=== PATIENT | female | born 1995 | race Caucasian/White ===

== ENCOUNTER 2016-10-15 13:00 | Emergency (ER) | payer OTHER ==
[~2016-10-15] VITALS: Ht 154.9 cm; Wt 56.7 kg
--- NOTE | 2016-10-15 13:49 | EKG ---
[facility] [address] [place] [address] Test Date: 2016-10-15 Test Time: 13:16:17 Pat Name: ANTHONY DAUGHERTY Department: Room: Gender: F Internet Sales Director: : 1995 Requested By: ANN STEVENS Order Number: [id number] Reading MD: Bran Blount Measurements Intervals [place] Rate: 78 P: 26 WA: 162 QRS: 71 QRSD: 78 T: 28 QT: 342 QTc: 393 Interpretive Statements SINUS RHYTHM Electronically Signed On 10-17-2016 10:35:01 [employer] by Bran Blount
[2016-10-15 13:55] LABS: BASO % 1 % (0-3); EOS % 1 % (0-3); HEMATOCRIT 33.6 % (36.0-47.0); HEMOGLOBIN 10.4 g/dL (12.0-15.5); LYMPH # 1.5 x10^3/uL (1.0-4.8); LYMPH % 26 % (24-48); MEAN CORPUSCULAR HEMOGLOBIN 23 pg (25-35); MEAN CORPUSCULAR HGB CONC 31 g/dL (31-37); MEAN CORPUSCULAR VOLUME 73 fL (79-100); MONO % 6 % (0-9); NEUT % 67 % (31-73); PLATELET COUNT 154 x10^3/uL (140-400); RED BLOOD COUNT 4.61 x10^6/uL (3.50-5.40); RED CELL DISTRIBUTION WIDTH 18.2 % (11.5-14.5); WHITE BLOOD COUNT 5.5 x10^3/uL (4.0-11.0)
--- NOTE | 2016-10-15 14:11 | PHYS DOC ---
Past Medical History Past Medical History: Arrhythmia, Seizure Past Surgical History: Alcohol Use: None Drug Use: None Adult General Chief Complaint Chief Complaint: SEIZURE HPI HPI Patient is a 20 year old female who presents with complaint of seizure episode that took place prior to arrival. The patient was brought to the emergency department from [facility]. The patient reportedly had a total of 5 seizure episodes earlier this morning. During one of the episodes patient reportedly struck the front of her face on a ladder in the cell. The patient states that she does not remember the episodes but states that she feels like she does when she has a seizure. The patient has been on carbamazepine therapy and is currently transitioning to phenobarbital therapy for her seizures. The patient states that she has had a currently. Patient denies any neck pain, nausea, vomiting, chest pain, or abdominal pain. Patient denies any focal weakness, vision loss, or difficulty with speech or swallowing. Patient rates her pain as 8 out of 10. Review of Systems Review of Systems Constitutional: Denies fever or chills [] Eyes: Denies change in visual acuity, redness, or eye pain [] HENT: Denies nasal congestion or sore throat [] Respiratory: Denies cough or shortness of breath [] Cardiovascular: No additional information not addressed in HPI [] GI: Denies abdominal pain, nausea, vomiting, bloody stools or diarrhea [] : Denies dysuria or hematuria [] Musculoskeletal: Denies back pain or joint pain [] Integument: Denies rash or skin lesions [] Neurologic: Headache, denies focal weakness or sensory changes [] Endocrine: Denies polyuria or polydipsia [] Current Medications Current Medications Current Medications Medications (Trade) Dose Ordered Sig/[facility] Start Time Stop Time Status Last Admin Dose Admin Acetaminophen (Tylenol) 650 mg 1X ONCE 10/15/16 14:30 10/15/16 14:31 DC 10/15/16 14:42 650 MG Allergies Allergies Allergies Coded Allergies Type Severity Reaction Last Updated Verified Penicillins Allergy Intermediate 10/15/16 Yes Physical Exam Physical Exam Constitutional: Alert, afebrile, no acute distress.. [] HENT: Normocephalic, ecchymosis to forehead and bilateral periorbital distribution, ecchymosis to right upper lip, bilateral external ears normal, oropharynx moist, no oral exudates, nose normal. [] Eyes: PERRLA, EOMI, conjunctiva normal, no discharge. [] Neck: Normal range of motion, no tenderness, supple, no stridor. [] Cardiovascular:Heart rate regular rhythm, no murmur [] Lungs & Thorax: Bilateral breath sounds clear to auscultation [] Abdomen: Bowel sounds normal, soft, no tenderness, no masses, no pulsatile masses. [] Skin: Warm, dry, no erythema, no rash. [] Back: No tenderness, no CVA tenderness. [] Extremities: No tenderness, no cyanosis, no clubbing, ROM intact, no edema. [] Neurologic: Alert and oriented X 3, normal motor function, normal sensory function, no focal deficits noted. [] Current Patient Data Vital Signs Vital Signs Date Time Temp Pulse Resp B/P Pulse Ox O2 Delivery O2 Flow Rate FiO2 10/15/16 13:10 98.1 88 10 113/71 94 Room Air 98.1 Lab Values Laboratory Tests Test 10/15/16 13:46 10/15/16 14:51 White Blood Count 5.5x10^3/uL (4.0-11.0) Red Blood Count 4.61x10^6/uL (3.50-5.40) Hemoglobin 10.4g/dL (12.0-15.5) L Hematocrit 33.6% (36.0-47.0) L Mean Corpuscular Volume 73fL (79-100) L Mean Corpuscular Hemoglobin 23pg (25-35) L Mean Corpuscular Hemoglobin Concent 31g/dL (31-37) Red Cell Distribution Width 18.2% (11.5-14.5) H Platelet Count 154x10^3/uL (140-400) Neutrophils (%) (Auto) 67% (31-73) Lymphocytes (%) (Auto) 26% (24-48) Monocytes (%) (Auto) 6% (0-9) Eosinophils (%) (Auto) 1% (0-3) Basophils (%) (Auto) 1% (0-3) Neutrophils # (Auto) 3.7x10^3uL (1.8-7.7) Lymphocytes # (Auto) 1.5x10^3/uL (1.0-4.8) Monocytes # (Auto) 0.3x10^3/uL (0.0-1.1) Eosinophils # (Auto) 0.1x10^3/uL (0.0-0.7) Basophils # (Auto) 0.0x10^3/uL (0.0-0.2) Platelet Estimate Pending Sodium Level 143mmol/L (136-145) Potassium Level 4.0mmol/L (3.5-5.1) Chloride Level 107mmol/L (98-107) Carbon Dioxide Level 29mmol/L (21-32) Anion Gap 7 (6-14) Blood Urea Nitrogen 9mg/dL (7-20) Creatinine 0.6mg/dL (0.6-1.0) Estimated GFR (Cockcroft-Gault) 125.0 BUN/Creatinine Ratio 15 (6-20) Glucose Level 83mg/dL (70-99) Lactic Acid Level 0.9mmol/L (0.4-2.0) Calcium Level 8.5mg/dL (8.5-10.1) Total Bilirubin 0.2mg/dL (0.2-1.0) Aspartate Amino Transferase (AST) 12U/L (15-37) L Alanine Aminotransferase (ALT) 12U/L (14-59) L Alkaline Phosphatase 93U/L (46-116) Total Protein 6.6g/dL (6.4-8.2) Albumin 3.7g/dL (3.4-5.0) Albumin/Globulin Ratio 1.3 (1.0-1.7) Urine Collection Type U cath Urine Color Yellow Urine Clarity Clear Urine pH 7.0 Urine Specific [place] 1.015 Urine Protein Negativemg/dL (NEG-TRACE) Urine Glucose (UA) Negativemg/dL (NEG) Urine Ketones (Stick) Negativemg/dL (NEG) Urine Blood Negative (NEG) Urine Nitrite Negative (NEG) Urine Bilirubin Negative (NEG) Urine Urobilinogen Dipstick 0.2mg/dL (0.2 mg/dL) Urine Leukocyte Esterase Small (NEG) Urine RBC 0/HPF (0-2) Urine WBC 1-4/HPF (0-4) Urine Squamous Epithelial Cells Mod/LPF Urine Bacteria Few/HPF (0-FEW) Urine Mucus Marked/LPF Urine Test Negative (NEG) Laboratory Tests 10/15/16 13:46 Laboratory Tests 10/15/16 13:46 EKG EKG Interpreted by me: Heart rate 78, sinus rhythm, normal intervals, normal axis, no acute ST/T-wave abnormalities present [] Radiology/Procedures Radiology/Procedures CT of the head and face pending at time of sign out. [] Course & Med Decision Making Course & Med Decision Making Pertinent Labs and Imaging studies reviewed. (See chart for details) Patient was given Tylenol for headache. I consult to Dr. Calhoun of neurology. He recommended that the patient be started on Keppra therapy and that she have a brain MRI done in the next 2 days. He stated that if the patient's head CT and facial CT were negative for acute injury the patient could be discharged back to [facility]. Results of CT pending at time of sign out. Dr. Gilmore took over care of patient at 1530. Dragon Disclaimer Dragon Disclaimer This electronic medical record was generated, in whole or in part, using a voice recognition dictation system. Departure Departure Impression: Primary Impression: Seizure disorder Additional Impression: Facial injury Disposition: 01 HOME, SELF-CARE Condition: STABLE Referrals: NO PCP (PCP) Patient Instructions: Seizure, Adult Additional Instructions: You were started on Keppra as was recommended by our on-call neurologist, Dr. Calhoun. It is recommended that she follow-up with your neurologist within the next 5 days. It is also recommended that you have a brain MRI done in the next 2 days as recommended by neurology. Return to the emergency department for any worsening symptoms or further seizure activity. Scripts Levetiracetam (Keppra)500 Mg Tablet1 Tab PO BID #60 TAB Ref 0 Prov:ANN STEVENS MD 10/15/16 Problem Qualifiers Additional Impression: Facial injury Encounter type: initial encounter Qualified Code: S09.93XA - Unspecified injury of face, initial encounter ANN STEVENS MD Oct 15, 2016 14:11
[2016-10-15] MEDS ORDERED: ACETAMINOPHEN 325 MG TABLET. PO ONE (14:30)
[2016-10-15 14:37] LABS: CALCIUM 8.5 mg/dL (8.5-10.1); CREATININE 0.6 mg/dL (0.6-1.0)
[2016-10-15 14:43] LABS: ALBUMIN 3.7 g/dL (3.4-5.0); ALBUMIN/GLOBULIN RATIO 1.3 (1.0-1.7); TOTAL BILIRUBIN 0.2 mg/dL (0.2-1.0); TOTAL PROTEIN 6.6 g/dL (6.4-8.2)
[2016-10-15 15:01] LABS: NEG OBC UR NEG; POS OBC UR POS
[2016-10-15 15:09] LABS: BILIRUBIN,URINE NEGATIVE (NEG); GLUCOSE,URINE NEGATIVE (NEG); NITRITE,URINE NEGATIVE (NEG); PROTEIN,URINE NEGATIVE (NEG-TRACE); UROBILINOGEN,URINE 0.2 mg/dL (0.2 mg/dL)
[2016-10-15 15:10] LABS: BACTERIA,URINE FEW /HPF (0-FEW); RBC,URINE 0 /HPF (0-2); SQUAMOUS EPITHELIAL CELL,UR MOD /LPF
[2016-10-15 15:12] LABS: BARBITURATES POS (NEG); BENZODIAZEPINES NEG (NEG); CANNABINOIDS NEG (NEG); COCAINE NEG (NEG); METHADONE NEG (NEG); OPIATES NEG (NEG); PHENCYCLIDINE NEG (NEG)
[2016-10-15 15:18] LABS: ETHANOL, URINE NEG (NEG)
[2016-10-15 15:23] LABS: ANISOCYTOSIS SLIGHT; HYPOCHROMIA MOD; MICROCYTOSIS SLIGHT; OVALOCYTES FEW; PLT ESTIMATE ADEQUATE (ADEQUATE); POIKILOCYTOSIS SLIGHT
[2016-10-15] MEDS ORDERED: LEVE500T56 PO (15:29)
[2016-10-15 15:30] VITALS: BP 100/64
[2016-10-15] MEDS ORDERED: LEVETIRACETAM 500 MG TABLET PO STA (15:31)
--- NOTE | 2016-10-15 15:38 | RAD ---
Head and maxillofacial CT without contrast Indication: Seizure and fall. Axial imaging through the brain and facial bones was performed without contrast. Sagittal and coronal reformations of the facial bones were also performed. CT brain: The ventricles and sulci are within normal limits. No sulcal effacement, midline shift or hemorrhage is detected. The cisterns are patent. Impression: No acute intracranial process is detected. CT maxillofacial: The mandible is intact. The zygomatic arches are intact. The maxillary sinus carmona and orbital carmona are intact. No nasal bone fracture is seen. Impression: No acute abnormalities detected. Electronically signed by: Jamir Umana MD (Oct 15, 2016 15:36:28)
== END 2016-10-15 15:53 | disposition home or self-care (01) ==
LOC: ER 13:00 → EEVIPCON 13:00 → ER 15:53
DX: S00.83XA Contusion of other part of head, initial encounter (principal); S00.531A Contusion of lip, initial encounter; G40.909 Epilepsy, unspecified, not intractable, without status epilepticus; Z88.0 Allergy status to penicillin; Z79.899 Other long term (current) drug therapy; W22.8XXA Striking against or struck by other objects, initial encounter; Y93.89 Activity, other specified; Y92.143 Cell of prison as the place of occurrence of the external cause; Y99.8 Other external cause status
CPT/HCPCS: 36415; 70450; 70486; 80053; 81001; 81025; 83605; 85007; 85027; 87086; 93005; 99285; G0481

== ENCOUNTER 2016-12-07 01:15 | Emergency (ER) | payer OTHER ==
[~2016-12-07] VITALS: Ht 167.6 cm; Wt 56.7 kg
[~2016-12-07 01:15] MED LIST: LEVE500T56 PO
[2016-12-07] MEDS ORDERED: IV NORMAL SALINE 1000ML BAG 1,000 ML IV ONE (02:00)
--- NOTE | 2016-12-07 02:11 | PHYS DOC ---
Past Medical History Past Medical History: Arrhythmia, Seizure Past Surgical History: Alcohol Use: None Drug Use: None Adult General Chief Complaint Chief Complaint: SEIZURE HPI HPI Patient is a 20 year old female who presents by EMS from [facility] for multiple seizures this evening. She is taking carbamazepine and phenobarbital with reported no missed doses. She was given her doses this evening around 2200 on 12/06/16. She had a witnessed tonic clonic seizure by EMS and was given Versed 10mg IN. She does not give history at this time, but there is no other recent illness or pertinent history provided by nursing report over phone. From [facility] ED visit 10/15/16, she was being titrated down on carbamazepine and up on phenobarbital. Neurology was consulted by phone and recommended she be started on Keppra. Keppra is not on her current medication list sent from nursing home today. Review of Systems Review of Systems Unable to obtain secondary to mental status Current Medications Current Medications Current Medications Medications (Trade) Dose Ordered Sig/Karrie Start Time Stop Time Status Last Admin Dose Admin Acetaminophen (Tylenol) 500 mg 1X ONCE 12/07/16 03:00 12/07/16 03:01 DC 12/07/16 02:36 500 MG Sodium Chloride (Iv Sodium Chloride 0.9% 1000ml Bag) 1,000 ml @ 1,000 mls/hr 1X ONCE 12/07/16 02:00 12/07/16 02:59 DC 12/07/16 01:52 1,000 MLS/HR Allergies Allergies Allergies Coded Allergies Type Severity Reaction Last Updated Verified Penicillins Allergy Intermediate 10/15/16 Yes Physical Exam Physical Exam Constitutional: Well developed, well nourished, no acute distress, non-toxic appearance. [] HENT: Normocephalic, atraumatic, bilateral external ears normal, oropharynx moist, no oral exudates, nose normal. [] Eyes: PERRLA, EOMI, conjunctiva normal, no discharge. [] Neck: Normal range of motion, no tenderness, supple, no stridor. [] Cardiovascular:Heart rate regular rhythm [] Lungs & Thorax: Bilateral breath sounds clear to auscultation [] Abdomen: Bowel sounds normal, soft, no tenderness. [] Skin: Warm, dry, no erythema, no rash. [] Back: No tenderness, no CVA tenderness. [] Extremities: No tenderness, ROM intact, no edema. [] Neurologic: Sleepy and mumbles, moves extremities to pain, appears post-ictal. [ ] Psychologic: Unable to assess secondary to altered mental status. [] Current Patient Data Vital Signs Vital Signs Date Time Temp Pulse Resp B/P Pulse Ox O2 Delivery O2 Flow Rate FiO2 12/07/16 01:20 98.7 70 16 112/74 100 Room Air 98.7 Lab Values Laboratory Tests Test 12/07/16 01:05 12/07/16 01:55 12/07/16 02:00 POC Urine HCG, Qualitative Hcg negative (Negative) Sodium Level 142mmol/L (136-145) Potassium Level 4.5mmol/L (3.5-5.1) Chloride Level 105mmol/L (98-107) Carbon Dioxide Level 28mmol/L (21-32) Anion Gap 9 (6-14) Blood Urea Nitrogen 15mg/dL (7-20) Creatinine 0.6mg/dL (0.6-1.0) Estimated GFR (Cockcroft-Gault) 125.0 Glucose Level 83mg/dL (70-99) Calcium Level 8.7mg/dL (8.5-10.1) Carbamazepine (Tegretol) Level 7.9mcg/mL (4.0-12.0) Carbamazepine Last Dose Date Unknown Carbamazepine Last Dose Time Unknown Phenobarbital Level 29.2mcg/mL (15.0-40.0) Phenobarbital Last Dose Date Unknown Phenobarbital Last Dose Time Unknown Urine Opiates Screen Neg (NEG) Urine Methadone Screen Neg (NEG) Urine Barbiturates Pos (NEG) Urine Phencyclidine Screen Neg (NEG) Urine Amphetamine/Methamphetamine Neg (NEG) Urine Benzodiazepines Screen Pos (NEG) Urine Cocaine Screen Neg (NEG) Urine Cannabinoids Screen Neg (NEG) Urine Ethyl Alcohol Neg (NEG) Laboratory Tests 12/07/16 01:55 EKG EKG EKG as interpreted by me as normal sinus rhythm, rate 64, no ST-T changes, normal intervals, no ectopy Course & Med Decision Making Course & Med Decision Making Pertinent Labs and Imaging studies reviewed. (See chart for details) 0220: She is AOx3 and has complaint of general headache that she usually gets after seizure. She states she has almost daily seizures and she has not discussed a further plan for medication alteration with a neurologist as she does not like her current neurologist. She is not taking keppra because she has failed that medication in the past. She feels she is back to her baseline. She denies recent f/c, n/v, diarrhea, dysuria, cough, dyspnea, numbness, tingling, weakness, trauma. She notes compliance with current medication regimen. She denies drug intake. 0300: She remains at mental baseline with no further seizure activity. Will discharge back to nursing home custody to continue outpatient follow up. Encouraged her to see a neurologist for further management. Return precautions given. She understands and agrees with plan. Dragon Disclaimer Dragon Disclaimer This electronic medical record was generated, in whole or in part, using a voice recognition dictation system. Departure Departure Impression: Primary Impression: Seizure disorder Additional Impression: Headache Disposition: 01 HOME, SELF-CARE (nursing home) Condition: STABLE Referrals: PAPO GOODWIN MD Patient Instructions: Seizure, Adult, [id number] Additional Instructions: Continue your current medications. Follow-up with neurology clinic. Please call for appointment. Return for any concerns. Problem Qualifiers Additional Impression: Headache Headache type: unspecified Headache chronicity pattern: episodic headache Intractability: not intractable Qualified Code: R51 - Headache Abisai KRISHNAN MD Dec 07, 2016 02:11
[2016-12-07 02:18] LABS: ANION GAP 9 (6-14); BLOOD UREA NITROGEN 15 mg/dL (7-20); CALCIUM 8.7 mg/dL (8.5-10.1); CARBON DIOXIDE 28 mmol/L (21-32); CHLORIDE 105 mmol/L (98-107); CREATININE 0.6 mg/dL (0.6-1.0); GLUCOSE 83 mg/dL (70-99); POTASSIUM 4.5 mmol/L (3.5-5.1); SODIUM 142 mmol/L (136-145)
[2016-12-07 02:18] LABS: BARBITURATES POS (NEG); BENZODIAZEPINES POS (NEG); CANNABINOIDS NEG (NEG); COCAINE NEG (NEG); METHADONE NEG (NEG); OPIATES NEG (NEG); PHENCYCLIDINE NEG (NEG)
[2016-12-07 02:19] LABS: ETHANOL, URINE NEG (NEG)
[2016-12-07 02:22] LABS: PHENOBARB 29.2 mcg/mL (15.0-40.0)
[2016-12-07 03:00] VITALS: BP 104/74
[2016-12-07] MEDS ORDERED: ACETAMINOPHEN 500 MG TABLET PO ONE (03:00)
--- NOTE | 2016-12-07 06:13 | EKG ---
[facility] [address] [place] [address] Test Date: 2016-12-04 Test Time: 00:46:06 Pat Name: ANTHONY SCHWARTZFIELD Department: Room: Gender: F Training And Development Coordinator: : 1995 Requested By: Abisai KRISHNAN Order Number: [id number] Reading MD: Measurements Intervals [place] Rate: 64 P: 28 DC: 174 QRS: 71 QRSD: 74 T: 34 QT: 368 QTc: 383 Interpretive Statements SINUS RHYTHM QRS(T) CONTOUR ABNORMALITY CONSISTENT WITH ANTEROSEPTAL MYOCARDIAL DAMAGE ABNORMAL ECG RI6.01 No previous ECG available for comparison
== END 2016-12-07 03:15 | disposition home or self-care (01) ==
LOC: ER 01:15 → EEVIPCON 01:15 → ER 03:15
DX: G40.909 Epilepsy, unspecified, not intractable, without status epilepticus (principal); R51 Headache; Z88.0 Allergy status to penicillin
CPT/HCPCS: 36415; 51701; 80048; 80156; 80184; 81025; 93005; 96360; 99285; G0481; J7030

== ENCOUNTER 2016-12-11 00:25 | Emergency (ER) | payer OTHER ==
[~2016-12-11] VITALS: Ht 160 cm; Wt 56.7 kg
--- NOTE | 2016-12-11 00:52 | PHYS DOC ---
Past Medical History Past Medical History: Arrhythmia, Seizure Past Surgical History: Alcohol Use: None Drug Use: None Adult General Chief Complaint Chief Complaint: SEIZURE HPI HPI Patient is a 20 year old female who presents with altered mental status. The patient was brought to the emergency department from [facility] after reportedly having 12 seizures in a 45 minute time period. The patient has history of seizure disorder and was recently seen in the emergency department on December 07, 2016. Before that she had been admitted to [facility]. The patient has had trouble with compliance to the medical regimen. Recommendations have been made for patient to start on Keppra, however reports are that the patient has refused to take Keppra due to not liking the way that it makes her feel. Patient is currently taking carbamazepine and phenobarbital. The patient currently is unable to provide any history as she is altered in his currently not speaking or answering questions. Patient was given Versed prior to arrival which helped stop the patient's seizures. Review of Systems Review of Systems Unable to obtain from patient due to altered mental status Current Medications Current Medications Current Medications Medications (Trade) Dose Ordered Sig/Karrie Start Time Stop Time Status Last Admin Dose Admin Ketorolac Tromethamine (Toradol) 30 mg 1X ONCE 12/11/16 02:30 12/11/16 02:31 DC 12/11/16 02:27 30 MG Sodium Chloride (Iv Sodium Chloride 0.9% 1000ml Bag) 1,000 ml @ 1,000 mls/hr 1X ONCE 12/11/16 01:00 12/11/16 01:59 DC 12/11/16 02:14 1,000 MLS/HR Allergies Allergies Allergies Coded Allergies Type Severity Reaction Last Updated Verified Penicillins Allergy Intermediate 10/15/16 Yes diazepam Allergy Unknown 12/11/16 Yes Physical Exam Physical Exam Constitutional: Lethargic, tracks to voice, aphasic. [] HENT: Normocephalic, atraumatic, bilateral external ears normal, oropharynx moist, no oral exudates, nose normal. [] Eyes: PERRLA, EOMI, horizontal nystagmus present, conjunctiva normal, no discharge. [] Neck: Normal range of motion, no tenderness, supple, no stridor. [] Cardiovascular:Heart rate regular rhythm, no murmur [] Lungs & Thorax: Bilateral breath sounds clear to auscultation [] Abdomen: Bowel sounds normal, soft, no tenderness, no masses, no pulsatile masses. [] Skin: Warm, dry, no erythema, no rash. [] Back: No tenderness, no CVA tenderness. [] Extremities: No tenderness, no cyanosis, no clubbing, ROM intact, no edema. [] Neurologic: Lethargic, tracks to voice, moves extremities purposefully but does not follow commands. [] Current Patient Data Vital Signs Vital Signs Date Time Temp Pulse Resp B/P Pulse Ox O2 Delivery O2 Flow Rate FiO2 12/11/16 00:25 97.4 71 15 113/79 99 Room Air 97.4 Lab Values Laboratory Tests Test 12/11/16 00:34 12/11/16 01:12 12/11/16 01:24 POC Urine HCG, Qualitative Hcg negative (Negative) White Blood Count 5.7x10^3/uL (4.0-11.0) Red Blood Count 4.72x10^6/uL (3.50-5.40) Hemoglobin 11.5g/dL (12.0-15.5) L Hematocrit 36.9% (36.0-47.0) Mean Corpuscular Volume 78fL (79-100) L Mean Corpuscular Hemoglobin 24pg (25-35) L Mean Corpuscular Hemoglobin Concent 31g/dL (31-37) Red Cell Distribution Width 20.4% (11.5-14.5) H Platelet Count 204x10^3/uL (140-400) Neutrophils (%) (Auto) 50% (31-73) Lymphocytes (%) (Auto) 42% (24-48) Monocytes (%) (Auto) 7% (0-9) Eosinophils (%) (Auto) 1% (0-3) Basophils (%) (Auto) 1% (0-3) Neutrophils # (Auto) 2.8x10^3uL (1.8-7.7) Lymphocytes # (Auto) 2.4x10^3/uL (1.0-4.8) Monocytes # (Auto) 0.4x10^3/uL (0.0-1.1) Eosinophils # (Auto) 0.1x10^3/uL (0.0-0.7) Basophils # (Auto) 0.1x10^3/uL (0.0-0.2) Sodium Level 142mmol/L (136-145) Potassium Level 4.0mmol/L (3.5-5.1) Chloride Level 104mmol/L (98-107) Carbon Dioxide Level 29mmol/L (21-32) Anion Gap 9 (6-14) Blood Urea Nitrogen 10mg/dL (7-20) Creatinine 0.6mg/dL (0.6-1.0) Estimated GFR (Cockcroft-Gault) 125.0 BUN/Creatinine Ratio 17 (6-20) Glucose Level 80mg/dL (70-99) Calcium Level 9.1mg/dL (8.5-10.1) Total Bilirubin 0.3mg/dL (0.2-1.0) Aspartate Amino Transferase (AST) 22U/L (15-37) Alanine Aminotransferase (ALT) 17U/L (14-59) Alkaline Phosphatase 114U/L (46-116) Total Protein 7.3g/dL (6.4-8.2) Albumin 4.1g/dL (3.4-5.0) Albumin/Globulin Ratio 1.3 (1.0-1.7) Carbamazepine (Tegretol) Level 7.7mcg/mL (4.0-12.0) Carbamazepine Last Dose Date Carbamazepine Last Dose Time Phenobarbital Level 34.2mcg/mL (15.0-40.0) Phenobarbital Last Dose Date Phenobarbital Last Dose Time Urine Collection Type U cath Urine Color Yellow Urine Clarity Cloudy Urine pH 7.0 Urine Specific [place] 1.025 Urine Protein Negativemg/dL (NEG-TRACE) Urine Glucose (UA) Negativemg/dL (NEG) Urine Ketones (Stick) Tracemg/dL (NEG) Urine Blood Negative (NEG) Urine Nitrite Negative (NEG) Urine Bilirubin Small (NEG) Urine Urobilinogen Dipstick 1.0mg/dL (0.2 mg/dL) Urine Leukocyte Esterase Negative (NEG) Urine RBC 0/HPF (0-2) Urine WBC 0/HPF (0-4) Urine Squamous Epithelial Cells Mod/LPF Urine Amorphous Sediment Present/HPF Urine Bacteria 0/HPF (0-FEW) Urine Mucus Mod/LPF Urine Opiates Screen Neg (NEG) Urine Methadone Screen Neg (NEG) Urine Barbiturates Pos (NEG) Urine Phencyclidine Screen Neg (NEG) Urine Amphetamine/Methamphetamine Neg (NEG) Urine Benzodiazepines Screen Pos (NEG) Urine Cocaine Screen Neg (NEG) Urine Cannabinoids Screen Neg (NEG) Urine Ethyl Alcohol Neg (NEG) Laboratory Tests 12/11/16 01:12 Laboratory Tests 12/11/16 01:12 EKG EKG Interpreted by me: Heart rate 75, sinus rhythm, normal intervals, normal axis, no acute ST/T-wave abnormalities present [] Radiology/Procedures Radiology/Procedures [facility] [address] [place] [address] IMAGING REPORT Signed PATIENT: ANTHONY DAUGHERTY ACCOUNT: [id number] : 1995 LOCATION: ER AGE: 20 SEX: F EXAM STATUS: REG ER ORD. PHYSICIAN: ANN STEVENS MD REASON: multiple seizures, altered mental status PROCEDURE: HEAD WO CONTRAST Examination: CT head without contrast History: History of seizures, altered mental status COMPARISON 10/15/2016. TECHNIQUE Axial CT images of the head was performed without contrast. Exposure: One or more of the following dose reduction technique were utilized for this examination: 1. Automated exposure control. 2.Adjustment of MA and /or KV according to patient size. 3. Use of iterative reconstruction technique. Findings: There is no evidence of midline shift. There is no acute intracranial bleed or extra-axial fluid collection identified. The choudhary-white matter differentiation is maintained. The visualized lateral ventricles, 3rd ventricle , 4th ventricle appropriate for age. The basal cisterns are not effaced. The visualized paranasal sinuses, mastoid air cells are clear. IMPRESSION No acute intracranial findings. Electronically signed by: Jeremiah Lyon (Dec 11, 2016 02:20:30) DICTATED and SIGNED BY: JEREMIAH LYON MD DATE: 12/11/16219 CC: ANN STEVENS MD; UNKNOWN PCP NAME ~ [] Course & Med Decision Making Course & Med Decision Making Pertinent Labs and Imaging studies reviewed. (See chart for details) Patient was observed in the emergency department with stable vital signs during her entire emergency department stay. The patient returned to baseline mental status while in the emergency department. The patient admits that she has not been taking Keppra and states that she does not know of any side effects from taking the medication. Patient states that she used to be on monotherapy with Keppra and it didn't seem to help by itself. As was recommended from previous visit, this patient needs to be on Keppra therapy in addition to phenobarbital and carbon as pain which she is currently therapeutic based off of serum levels. The patient will be referred to Dr. Coy of neurology for follow- up in one to 2 weeks. Recommended return to the emergency department for any worsening symptoms. Patient voiced understanding and in agreement with treatment plan. Dragon Disclaimer Dragon Disclaimer This electronic medical record was generated, in whole or in part, using a voice recognition dictation system. Departure Departure Impression: Primary Impression: Seizure disorder Disposition: HOME, SELF-CARE Condition: IMPROVED Referrals: UNKNOWN PCP NAME (PCP) Patient Instructions: Seizure, Adult Additional Instructions: Follow-up with Dr. Coy in one to 2 weeks. Return to the emergency department for any worsening symptoms. Scripts Levetiracetam (Keppra)500 Mg Tablet1 Tab PO BID #60 TAB Ref 0 Prov:ANN STEVENS MD 12/11/16 ANN STEVENS MD Dec 11, 2016 00:52
[2016-12-11] MEDS ORDERED: IV NORMAL SALINE 1000ML BAG 1,000 ML IV ONE (01:00)
[2016-12-11 01:25] LABS: BASO # 0.1 x10^3/uL (0.0-0.2); BASO % 1 % (0-3); EOS % 1 % (0-3); HEMATOCRIT 36.9 % (36.0-47.0); HEMOGLOBIN 11.5 g/dL (12.0-15.5); LYMPH # 2.4 x10^3/uL (1.0-4.8); LYMPH % 42 % (24-48); MEAN CORPUSCULAR HEMOGLOBIN 24 pg (25-35); MEAN CORPUSCULAR HGB CONC 31 g/dL (31-37); MEAN CORPUSCULAR VOLUME 78 fL (79-100); MONO % 7 % (0-9); NEUT % 50 % (31-73); PLATELET COUNT 204 x10^3/uL (140-400); RED BLOOD COUNT 4.72 x10^6/uL (3.50-5.40); RED CELL DISTRIBUTION WIDTH 20.4 % (11.5-14.5); WHITE BLOOD COUNT 5.7 x10^3/uL (4.0-11.0)
[2016-12-11 01:43] LABS: ANION GAP 9 (6-14); BLOOD UREA NITROGEN 10 mg/dL (7-20); BUN/CREATININE RATIO 17 (6-20); CALCIUM 9.1 mg/dL (8.5-10.1); CARBON DIOXIDE 29 mmol/L (21-32); CHLORIDE 104 mmol/L (98-107); CREATININE 0.6 mg/dL (0.6-1.0); GLUCOSE 80 mg/dL (70-99); SODIUM 142 mmol/L (136-145)
[2016-12-11 01:47] LABS: BILIRUBIN,URINE SMALL (NEG); GLUCOSE,URINE NEGATIVE (NEG); NITRITE,URINE NEGATIVE (NEG); PROTEIN,URINE NEGATIVE (NEG-TRACE)
[2016-12-11 01:48] LABS: ALBUMIN 4.1 g/dL (3.4-5.0); ALBUMIN/GLOBULIN RATIO 1.3 (1.0-1.7); ALK PHOS 114 U/L (46-116); ALT (SGPT) 17 U/L (14-59); AST (SGOT) 22 U/L (15-37); PHENOBARB 34.2 mcg/mL (15.0-40.0); TOTAL BILIRUBIN 0.3 mg/dL (0.2-1.0); TOTAL PROTEIN 7.3 g/dL (6.4-8.2)
[2016-12-11 01:48] LABS: BACTERIA,URINE 0 /HPF (0-FEW); RBC,URINE 0 /HPF (0-2); SQUAMOUS EPITHELIAL CELL,UR MOD /LPF; WBC,URINE 0 /HPF (0-4)
[2016-12-11 01:54] LABS: BARBITURATES POS (NEG); BENZODIAZEPINES POS (NEG); CANNABINOIDS NEG (NEG); COCAINE NEG (NEG); METHADONE NEG (NEG); OPIATES NEG (NEG); PHENCYCLIDINE NEG (NEG)
[2016-12-11 01:57] LABS: ETHANOL, URINE NEG (NEG)
--- NOTE | 2016-12-11 02:21 | RAD ---
Examination: CT head without contrast History: History of seizures, altered mental status COMPARISON 10/15/2016. TECHNIQUE Axial CT images of the head was performed without contrast. Exposure: One or more of the following dose reduction technique were utilized for this examination: 1. Automated exposure control. 2.Adjustment of MA and /or KV according to patient size. 3. Use of iterative reconstruction technique. Findings: There is no evidence of midline shift. There is no acute intracranial bleed or extra-axial fluid collection identified. The choudhary-white matter differentiation is maintained. The visualized lateral ventricles, 3rd ventricle , 4th ventricle appropriate for age. The basal cisterns are not effaced. The visualized paranasal sinuses, mastoid air cells are clear. IMPRESSION No acute intracranial findings. Electronically signed by: Jeremiah Lyon (Dec 11, 2016 02:20:30)
[2016-12-11] MEDS ORDERED: KETOROLAC TROMETHAMINE 30 MG/ML SYRINGE. IV ONE (02:30)
[2016-12-11 02:42] VITALS: BP 105/67
[2016-12-11] MEDS ORDERED: LEVE500T56 PO (02:43)
[2016-12-11] MEDS ORDERED: LEVETIRACETAM 500 MG TABLET PO ONE (03:00)
[2016-12-11 05:20] LABS: ANISOCYTOSIS MOD; HYPOCHROMIA SLIGHT; OVALOCYTES OCC; PLT ESTIMATE ADEQUATE (ADEQUATE)
--- NOTE | 2016-12-11 11:28 | EKG ---
[facility] [address] [place] [address] Test Date: 2016-12-11 Test Time: 00:33:43 Pat Name: ANTHONY DAUGHERTY Department: Room: Gender: F Patient Services Representative: : 1995 Requested By: ANN STEVENS Order Number: [id number] Reading MD: Aniket Johnston Measurements Intervals [place] Rate: 75 P: 65 [place]: 166 QRS: 88 QRSD: 78 T: 56 QT: 360 QTc: 404 Interpretive Statements SINUS RHYTHM QRS(T) CONTOUR ABNORMALITY CONSISTENT WITH ANTEROSEPTAL MYOCARDIAL DAMAGE ABNORMAL ECG Electronically Signed On 12-19-2016 16:56:02 CDT by Aniket Johnston
== END 2016-12-11 03:34 | disposition home or self-care (01) ==
LOC: EEVIPCON 00:25 → ER 00:25
DX: G40.909 Epilepsy, unspecified, not intractable, without status epilepticus (principal); Z88.0 Allergy status to penicillin; Z88.8 Allergy status to other drugs, medicaments and biological substances
CPT/HCPCS: 36415; 70450; 80053; 80156; 80184; 80305; 81001; 81025; 85007; 85027; 93005; 96361; 96374; 99285; J1885; J7030; G0481

== ENCOUNTER 2016-12-11 22:45 | Inpatient (IN) | payer OTHER ==
[~2016-12-11] VITALS: Ht 160 cm; Wt 63.1 kg
[2016-12-11] MEDS ORDERED: LEVETIRACETAM 250 MG TABLET. PO ONE (23:00)
[2016-12-11] MEDS ORDERED: IV NORMAL SALINE 1000ML BAG 1,000 ML IV ONE (23:00)
--- NOTE | 2016-12-11 23:11 | PHYS DOC ---
Past Medical History Past Medical History: Anemia, Anxiety, Arrhythmia, Depression, Seizure Past Surgical History: Alcohol Use: None Drug Use: None Adult General Chief Complaint Chief Complaint: SEIZURE HPI HPI Patient is a 20 year old female who presents with complaint of uncontrolled seizure activity. The patient is currently postictal and unable to provide any history. This patient was seen last night in the emergency department after having a reported 15 seizures. The patient returned to baseline mental status last night. After discussion, the patient agreed to start on Keppra in addition to phenobarbital and carbamazepine which she had been taking and was found to have therapeutic levels. Patient reportedly has had 19 seizures in a reported 1- 1/2 hour time frame. Patient was given a total of 10 mg of Versed prior to arrival. Patient has not had any reported injuries. Review of Systems Review of Systems Unable to obtain from patient due to postictal state Current Medications Current Medications Current Medications Medications (Trade) Dose Ordered Sig/Karrie Start Time Stop Time Status Last Admin Dose Admin Levetiracetam (Keppra) 750 mg 1X ONCE 12/11/16 23:00 12/11/16 23:06 DC Sodium Chloride (Iv Sodium Chloride 0.9% 1000ml Bag) 1,000 ml @ 100 mls/hr 1X ONCE 12/11/16 23:00 12/12/16 08:59 Allergies Allergies Allergies Coded Allergies Type Severity Reaction Last Updated Verified Penicillins Allergy Intermediate 10/15/16 Yes diazepam Allergy Unknown 12/11/16 Yes Physical Exam Physical Exam Constitutional: Lethargic, does not follow commands, vital signs stable. [] HENT: Normocephalic, atraumatic, bilateral external ears normal, oropharynx moist, no oral exudates, nose normal. [] Eyes: PERRLA, EOMI, conjunctiva normal, no discharge. [] Neck: Normal range of motion, no tenderness, supple, no stridor. [] Cardiovascular:Heart rate regular rhythm, no murmur [] Lungs & Thorax: Bilateral breath sounds clear to auscultation [] Abdomen: Bowel sounds normal, soft, no tenderness, no masses, no pulsatile masses. [] Skin: Warm, dry, no erythema, no rash. [] Back: No tenderness, no CVA tenderness. [] Extremities: No tenderness, no cyanosis, no clubbing, ROM intact, no edema. [] Neurologic: Lethargic, does not follow commands. [] Current Patient Data Vital Signs Vital Signs Date Time Temp Pulse Resp B/P Pulse Ox O2 Delivery O2 Flow Rate FiO2 12/11/16 22:50 99.1 87 24 106/65 98 Room Air 99.1 Lab Values Laboratory Tests Test 12/11/16 23:06 White Blood Count 4.4x10^3/uL (4.0-11.0) Red Blood Count 4.33x10^6/uL (3.50-5.40) Hemoglobin 10.6g/dL (12.0-15.5) L Hematocrit 34.0% (36.0-47.0) L Mean Corpuscular Volume 79fL (79-100) Mean Corpuscular Hemoglobin 25pg (25-35) Mean Corpuscular Hemoglobin Concent 31g/dL (31-37) Red Cell Distribution Width 20.0% (11.5-14.5) H Platelet Count 153x10^3/uL (140-400) Neutrophils (%) (Auto) 65% (31-73) Lymphocytes (%) (Auto) 27% (24-48) Monocytes (%) (Auto) 7% (0-9) Eosinophils (%) (Auto) 1% (0-3) Basophils (%) (Auto) 1% (0-3) Neutrophils # (Auto) 2.8x10^3uL (1.8-7.7) Lymphocytes # (Auto) 1.2x10^3/uL (1.0-4.8) Monocytes # (Auto) 0.3x10^3/uL (0.0-1.1) Eosinophils # (Auto) 0.0x10^3/uL (0.0-0.7) Basophils # (Auto) 0.0x10^3/uL (0.0-0.2) Sodium Level 144mmol/L (136-145) Potassium Level 3.8mmol/L (3.5-5.1) Chloride Level 106mmol/L (98-107) Carbon Dioxide Level 29mmol/L (21-32) Anion Gap 9 (6-14) Blood Urea Nitrogen 11mg/dL (7-20) Creatinine 0.7mg/dL (0.6-1.0) Estimated GFR (Cockcroft-Gault) 104.6 BUN/Creatinine Ratio 16 (6-20) Glucose Level 80mg/dL (70-99) Calcium Level 8.7mg/dL (8.5-10.1) Total Bilirubin 0.3mg/dL (0.2-1.0) Aspartate Amino Transferase (AST) 16U/L (15-37) Alanine Aminotransferase (ALT) 16U/L (14-59) Alkaline Phosphatase 102U/L (46-116) Total Protein 6.5g/dL (6.4-8.2) Albumin 3.7g/dL (3.4-5.0) Albumin/Globulin Ratio 1.3 (1.0-1.7) Laboratory Tests 12/11/16 23:06 Laboratory Tests 12/11/16 23:06 EKG EKG Interpreted by me: Heart rate 72, sinus rhythm, normal intervals, normal axis, no acute ST/T-wave abnormalities present [] Radiology/Procedures Radiology/Procedures Not performed [] Course & Med Decision Making Course & Med Decision Making Pertinent Labs and Imaging studies reviewed. (See chart for details) The patient had additional seizure activity in the emergency department lasting approximately 1-2 minutes each episode. I consult to Dr. Calhoun of neurology who recommended that the patient be started on 750 mg of Keppra. This was initiated IV in the emergency department. On reevaluation the patient's seizure activity has stopped and patient is back at her baseline mental status. Due to significant number of seizures which have occurred over the past couple days, the patient will need to be admitted for further evaluation and treatment. Patient was admitted to Dr. Jacobo. Dragon Disclaimer Dragon Disclaimer This electronic medical record was generated, in whole or in part, using a voice recognition dictation system. Departure Departure Impression: Primary Impression: Status epilepticus Disposition: ADMITTED INPATIENT Admitting Physician: Janet Jacobo Condition: GUARDED Referrals: UNKNOWN PCP NAME (PCP) ANN STEVENS MD Dec 11, 2016 23:11
[2016-12-11] MEDS ORDERED: LEVETIRACETAM IV ONE (23:15)
[2016-12-11] MEDS ORDERED: NORMAL SALINE IV ONE (23:15)
[2016-12-11 23:17] LABS: BASO % 1 % (0-3); EOS % 1 % (0-3); HEMOGLOBIN 10.6 g/dL (12.0-15.5); LYMPH # 1.2 x10^3/uL (1.0-4.8); LYMPH % 27 % (24-48); MEAN CORPUSCULAR HEMOGLOBIN 25 pg (25-35); MEAN CORPUSCULAR HGB CONC 31 g/dL (31-37); MEAN CORPUSCULAR VOLUME 79 fL (79-100); MONO % 7 % (0-9); NEUT % 65 % (31-73); PLATELET COUNT 153 x10^3/uL (140-400); RED BLOOD COUNT 4.33 x10^6/uL (3.50-5.40); WHITE BLOOD COUNT 4.4 x10^3/uL (4.0-11.0)
[2016-12-11 23:35] LABS: CALCIUM 8.7 mg/dL (8.5-10.1); CREATININE 0.7 mg/dL (0.6-1.0); GFR 104.6; POTASSIUM 3.8 mmol/L (3.5-5.1)
[2016-12-11 23:40] LABS: ALBUMIN 3.7 g/dL (3.4-5.0); ALBUMIN/GLOBULIN RATIO 1.3 (1.0-1.7); TOTAL BILIRUBIN 0.3 mg/dL (0.2-1.0); TOTAL PROTEIN 6.5 g/dL (6.4-8.2)
--- NOTE | 2016-12-11 23:42 | ACF ---
Admit Criteria Forms Admit Criteria Forms Admit Criteria Forms SEIZURE Clinical Indications for Admission to Inpatient Care (Place 'X' for any and all applicable criteria): Admission is indicated for seizure and ANY ONE of the following(1)(2)(3)(4)(5): [X]I. Inpatient admission required rather than observation care (Also use Seizure: Observation Care Criteria as appropriate) because of ANY ONE of the following: [ ]a) Altered mental status that is severe or persistent [ ]b) New focal neurologic deficit that is severe or persistent [ ]c) Metabolic disorder (eg, hypoglycemia, hyponatremia) that is severe or persistent [X]d) Recurrent seizure [ ]e) Outpatient antiseizure regimen cannot be established (eg , patient cannot tolerate medication, initiation requires inpatient care) [ ]f) Need for ongoing intravenous infusion of antiseizure medication [ ]g) Cardiac arrhythmias of immediate concern [ ]h) Cerebral bleeding, hydrocephalus, or vasospasm monitoring (14) [ ]i) Increased intracranial pressure or cerebral edema monitoring (15) [ ]j) Other treatment or monitoring requiring inpatient admission [ ]II. Status epilepticus [A] or repetitive seizures not controlled with emergent treatment (6)(8) [ ]III. Brain disorder (eg, tumor, edema, and hydrocephalus) that requiring monitoring or intervention available only at inpatient level of care. [ ]IV. Brain insult (eg, severe trauma, stroke, drug toxicity, or withdrawal) that requires monitoring or intervention available only at inpatient level of care (10)(11) Extended stay beyond goal length of stay may be needed for (22) [ ]a) Complications of status epilepticus [ ]b) Refractory status epilepticus [ ]c) Etiology-specific therapy for conditions such as POLYMERIZATION SUPERVISOR infection, head injury,eclampsia, severe metabolic abnormalities, and brain tumor [ ]d) Residual neurologic damage, [ ]e) Initiation of significant change to anticonvulsant treatment [ ]f) Older patients (65 years or older) [ ]g) Patient requiring intubation (eg, to protect airway) The original [employer] content created by [email or web address] has been revised. The portions of the content which have been revised are identified through the use of italic text or in bold, and [facility] [email or web address] has neither reviewed nor approved the modified material. All other unmodified content is copyright [facility]. Please see references footnoted in the original [facility] edition 2016 LAVERN GARCIA Dec 11, 2016 23:42
[2016-12-11] MEDS ORDERED: ACETAMINOPHEN 325 MG TABLET. PO PRN (23:45)
[2016-12-11] MEDS ORDERED: ONDANSETRON PF 4 MG/2 ML VIAL. IV PRN (23:45)
[2016-12-12] VITALS (14 sets, daily range): BP systolic 85–118; BP diastolic 42–83
[2016-12-12 01:02] LABS: BARBITURATES POS (NEG); BENZODIAZEPINES POS (NEG); CANNABINOIDS NEG (NEG); COCAINE NEG (NEG); METHADONE NEG (NEG); OPIATES NEG (NEG); PHENCYCLIDINE NEG (NEG)
[2016-12-12 01:05] LABS: ETHANOL, URINE NEG (NEG)
[2016-12-12] MEDS: IV NORMAL SALINE 1000ML BAG 1,000 ML IV SCH ×3 (01:08→19:45)
[2016-12-12] MEDS: IBUPROFEN 600 MG TABLET. PO PRN (01:21)
[2016-12-12] MEDS ORDERED: KETOROLAC TROMETHAMINE 30 MG/ML SYRINGE. IV PRN (01:45)
[2016-12-12 05:04] LABS: BASO % 1 % (0-3); EOS % 1 % (0-3); HEMATOCRIT 32.1 % (36.0-47.0); HEMOGLOBIN 10.1 g/dL (12.0-15.5); LYMPH # 1.9 x10^3/uL (1.0-4.8); LYMPH % 41 % (24-48); MEAN CORPUSCULAR HEMOGLOBIN 25 pg (25-35); MEAN CORPUSCULAR HGB CONC 32 g/dL (31-37); MEAN CORPUSCULAR VOLUME 78 fL (79-100); MONO % 8 % (0-9); NEUT % 50 % (31-73); PLATELET COUNT 155 x10^3/uL (140-400); RED CELL DISTRIBUTION WIDTH 20.7 % (11.5-14.5); WHITE BLOOD COUNT 4.6 x10^3/uL (4.0-11.0)
[2016-12-12 05:22] LABS: CALCIUM 8.4 mg/dL (8.5-10.1); CREATININE 0.6 mg/dL (0.6-1.0); POTASSIUM 3.6 mmol/L (3.5-5.1)
--- NOTE | 2016-12-12 06:20 | EKG ---
[facility] [address] [place] [address] Test Date: 2016-12-11 Test Time: 22:49:07 Pat Name: ANTHONY DAUGHERTY Department: Room: 269 1 Gender: F [employer]formatic[employer] Architect: : 1995 Requested By: ANN STEVENS Order Number: [id number] Reading MD: Perla Barry Measurements Intervals [place] Rate: 72 P: 28 [place]: 150 QRS: 65 QRSD: 76 T: 30 QT: 350 QTc: 385 Interpretive Statements SINUS RHYTHM QRS(T) CONTOUR ABNORMALITY CONSISTENT WITH ANTEROSEPTAL MYOCARDIAL DAMAGE ABNORMAL ECG RI6.01 Compared to ECG 10/15/2016 13:16:17 No significant changes Electronically Signed On 12-12-2016 19:52:58 CDT by Perla Barry
[2016-12-12] MEDS ORDERED: LEVETIRACETAM IV SCH (09:00)
[2016-12-12] MEDS ORDERED: NORMAL SALINE IV SCH (09:00)
[2016-12-12 10:51] LABS: % SAT IRON 11 % (15-34); IRON,SERUM 32 ug/dL (50-170)
[2016-12-12] MEDS: LEVETIRACETAM 500 MG TABLET PO SCH ×2 (11:00→21:00)
--- NOTE | 2016-12-12 13:09 | HP ---
ADMIT DATE: 12/12/2016 CHIEF COMPLAINT: Seizure. HISTORY OF PRESENT ILLNESS: The patient is a 20-year-old currently residing in [facility] who presents with complaint of uncontrolled seizure activity. Per records, the patient actually had 19 seizures in a span of 90 minutes, was given a total of 10 mg of Versed. No injuries were reported. At time of ER visit, she actually was postictal/sedated on benzos. Currently, the patient is sleepy, responsive, although quite oppositional. 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 PAST SURGICAL HISTORY: She is status post . FAMILY HISTORY: Unknown to patient. SOCIAL HISTORY: Currently without toxic habits, but has used meth extensively. ALLERGIES: PENICILLIN, DIAZEPAM. MEDICATIONS: MAR reconciled with home medications. REVIEW OF SYSTEMS: The patient denies any pain, any headache, nausea, vomiting, refuses to answer most questions. PHYSICAL EXAMINATION: VITAL SIGNS: From today show a blood pressure of 86/47, heart rate of 72, respiratory rate at 20. She is afebrile. GENERAL: This is a 20-year-old woman, alert, in no acute distress. HEENT: Shows no scleral icterus. NECK: Supple. LUNGS: Clear to auscultation bilaterally. HEART: Regular rate and rhythm. ABDOMEN: Has positive bowel sounds, soft, nontender. EXTREMITIES: Show no edema. SKIN: Warm, soft and dry without any rash. LABORATORY DATA: CBC with a WBC of 4.6, hemoglobin 10.1, MCV of 78, platelets of 155. Chemistries with a BUN and creatinine of 10 and 0.6, normal electrolytes, calcium at 8.4. LFTs at admit were normal. Drug screen in the ER was positive for barbiturates as well as benzodiazepines. ASSESSMENT AND PLAN: The patient is a 20-year-old woman who has a history of seizure disorder associated with drug abuse. She has been reported to have multiple seizures now. Neurology has been consulted for further evaluation. We will have to rule out a true seizure activity versus pseudoseizures in association with malingering given her current living arrangements. The patient does have a microcytic anemia consistent with probable iron deficiency. We will obtain iron labs to elucidate. PRAMOD RIVAS MD DR: Susy JOB#: [id number] / [id number] TRUDY
--- NOTE | 2016-12-12 13:49 | RAD ---
PROCEDURE MRI brain without contrast. HISTORY Seizures. TECHNIQUE Sagittal T1, axial T1, axial T2, axial FLAIR, axial T2 gradient, coronal T2, oblique coronal FLAIR, and diffusion imaging with ADC map was performed. COMPARISON CT head from 1 day earlier. FINDINGS The ventricles are normal in size and configuration. There is no intracranial hemorrhage or extra-axial fluid collection. There is no mass effect or midline shift. There is no restricted diffusion to suggest an acute infarct. Cervicomedullary junction is unremarkable. Pituitary and suprasellar region are unremarkable. Intracranial flow voids are preserved. There is ethmoid and sphenoid mucosal thickening, mild. There is also minimal maxillary mucosal thickening. Oblique coronal imaging through the temporal lobes demonstrates no evidence of mesial temporal sclerosis or temporal lobe mass. Exam is limited to noncontrast imaging. IMPRESSION No acute intracranial findings. Electronically signed by: Matt Spencer MD (Dec 12, 2016 13:47:43)
--- NOTE | 2016-12-12 16:46 | PDOC2 ---
NEUROLOGY CONSULT Date of Admission Date of Admission DATE: 12/12/16 TIME: 16:36 Reason for Consult Reason for Consult: IMPRESSION: Seizure or seizure like activities. Non epileptic seizures also possible. Hx of seizure or seizure like episodes in 2012 with methamphetamine use. RECOMMENDATIONS/PLAN: She has been on Keppra. EEG Lab: see orders. Brain MRI was negative. HISTORY OF THE PRESENT ILLNESS: 20-y-old female inmate with Jx of seizure or seizure like episodes in 2012 associated with methamphetamine use/abuse at that time. She was brought to ER of [facility] recently reported 15 seizures. She returned on this time with multiple seizure or seizure like episodes. Her nurse observed one episode described as eye closure, " unresponsive", and stiffness of extremities for about 2 minutes. No postictal state. PAST MEDICAL HISTORY: Please see above. PAST SURGERY HISTORY: . ALLERGY: Reviewed. MEDICATIONS: Refer to MAR FAMILY HISTORY: Non contributory. SOCIAL HISTORY: Current as an inmate. Denies illicit drug use. REVIEW OF SYSTEMS: Constitutional: No malnutrition, weight loss, cachexia. Head: No traumatic brain or head injury. Skin: No edema, or rash. Ear: No infection. Eyes: No vision loss or color blindness. Nose: No bleeding or purulent discharges. Hearing: No hearing decrease. Neck: No injury. Breast: No history of cancer, masses,or discharges. Cardiac: No FL, arrhythmia,claudication, CAD, AFib, Pacemaker Placement. Pulmonary: No pneumonia, COPD. GI: No GI ulcer, GI bleeding. Urinary/genital: No dysuria, hematuria, incontinence, urinary retention. Endocrinologic: No cousin face, craniofacial dysmorphism, polydactyly, goiter. Skeletomuscular: No muscular atrophy, deformity. Neurological: see HP. Psychiatric: Denies current drug use/abuse. Otherwise, not [id number] review of systems. PHYSICAL EXAMINATION: General appearance is in no acute distress. HEENT: Normocephalic and nontraumatic. Eyes, nose, ears, and throat are unremarkable. Neck is supple. No lymphadenopathy. No bruits are heard over the carotid artery. No crepitus. Cardiovascular: S1, S2, regular rate and rhythm. Pulmonary: Clear to auscultation bilaterally. Abdomen: Bowel sounds are positive. Abdomen is soft, nontender, and nondistended. Extremities: No rash, lesions, or edema. No restriction of range of motion NEUROLOGICAL EXAMINATION: Eyes closed but was awake. Oriented to time, place and person. PERRL. EOMI. CN: no focal findings. Muscle tone: within normal. Muscle strength: 5 DTR: 2 Plantar reflex: Flexor response bilaterally Gait: not examined in bed. Sensory exam: no abnormal findings. No cerebellar signs elicited. F-T-N test accurate. Current Medications Current Medications Current Medications Sodium Chloride (Iv Sodium Chloride 0.9% 1000ml Bag) 1,000 ml @ 100 mls/hr 1X ONCE IV ; Start 12/11/16 at 23:00; Stop 12/12/16 at 08:59; Status DC Levetiracetam 750 mg 750 mg 1X ONCE PO ; Start 12/11/16 at 23:00; Stop at 23:06; Status DC Levetiracetam/ Sodium Chloride (Keppra/Iv Sodium Chloride 0.9% 100ml) 107.5 ml @ 400 mls/hr 1X ONCE IV Last administered on 12/11/16 23:15; Start 12/11/16 at 23:15; Stop 12/11/16 at 23:31; Status DC Ondansetron HCl 4 mg 4 mg PRN Q8HRS PRN IV NAUSEA/VOMITING Last administered on 12/12/16 14:54; Start 12/11/16 at 23:45; Stop 12/12/16 at 23:44 Sodium Chloride (Iv Sodium Chloride 0.9% 1000ml Bag) 1,000 ml @ 100 mls/hr Q10H IV Last administered on 12/12/16 14:54; Start 12/11/16 at 23:45; Stop at 23:44 Acetaminophen 650 mg 650 mg PRN Q4HRS PRN PO FEVER; Start 12/11/16 at 23:45; Stop 12/12/16 at 23:44 Levetiracetam/ Sodium Chloride (Keppra/Iv Sodium Chloride 0.9% 100ml) 107.5 ml @ 400 mls/hr Q12HR IV Last administered on 12/12/16 08:56; Start 12/12/16 at 09:00 Ibuprofen (Motrin) 600 mg PRN Q6HRS PRN PO INFLAMMATION Last administered on 3/ 27/17at 01:21; Start 12/12/16 at 01:15 Ketorolac Tromethamine (Toradol) 30 mg PRN Q6HRS PRN IV PAIN; Start 12/12/16 at 01:45; Stop 12/17/16 at 01:44 Levetiracetam (Keppra) 500 mg BID PO ; Start 12/12/16 at 11:00 Active Scripts Active Keppra (Levetiracetam) 500 Mg Tablet 1 Tab PO BID Keppra (Levetiracetam) 500 Mg Tablet 1 Tab PO BID Allergies Allergies: Coded Allergies: Penicillins (Verified Allergy, Intermediate, 10/15/16) diazepam (Verified Allergy, Unknown, 12/11/16) Vitals VITALS Vital Signs Date Time Temp Pulse Resp B/P Pulse Ox O2 Delivery O2 Flow Rate FiO2 12/12/16 15:00 97.7 77 18 103/60 100 Room Air 97.7 Labs Labs Laboratory Tests Test 12/11/16 00:47 12/11/16 23:06 12/12/16 04:10 12/12/16 06:21 Urine Opiates Screen Neg (NEG) Urine Methadone Screen Neg (NEG) Urine Barbiturates Pos (NEG) Urine Phencyclidine Screen Neg (NEG) Urine Amphetamine/Methamphetamine Neg (NEG) Urine Benzodiazepines Screen Pos (NEG) Urine Cocaine Screen Neg (NEG) Urine Cannabinoids Screen Neg (NEG) Urine Ethyl Alcohol Neg (NEG) White Blood Count 4.4x10^3/uL (4.0-11.0) 4.6x10^3/uL (4.0-11.0) Red Blood Count 4.33x10^6/uL (3.50-5.40) 4.10x10^6/uL (3.50-5.40) Hemoglobin 10.6g/dL (12.0-15.5) 10.1g/dL (12.0-15.5) Hematocrit 34.0% (36.0-47.0) 32.1% (36.0-47.0) Mean Corpuscular Volume 79fL (79-100) 78fL (79-100) Mean Corpuscular Hemoglobin 25pg (25-35) 25pg (25-35) Mean Corpuscular Hemoglobin Concent 31g/dL (31-37) 32g/dL (31-37) Red Cell Distribution Width 20.0% (11.5-14.5) 20.7% (11.5-14.5) Platelet Count 153x10^3/uL (140-400) 155x10^3/uL (140-400) Neutrophils (%) (Auto) 65% (31-73) 50% (31-73) Lymphocytes (%) (Auto) 27% (24-48) 41% (24-48) Monocytes (%) (Auto) 7% (0-9) 8% (0-9) Eosinophils (%) (Auto) 1% (0-3) 1% (0-3) Basophils (%) (Auto) 1% (0-3) 1% (0-3) Neutrophils # (Auto) 2.8x10^3uL (1.8-7.7) 2.3x10^3uL (1.8-7.7) Lymphocytes # (Auto) 1.2x10^3/uL (1.0-4.8) 1.9x10^3/uL (1.0-4.8) Monocytes # (Auto) 0.3x10^3/uL (0.0-1.1) 0.4x10^3/uL (0.0-1.1) Eosinophils # (Auto) 0.0x10^3/uL (0.0-0.7) 0.0x10^3/uL (0.0-0.7) Basophils # (Auto) 0.0x10^3/uL (0.0-0.2) 0.0x10^3/uL (0.0-0.2) Sodium Level 144mmol/L (136-145) 142mmol/L (136-145) Potassium Level 3.8mmol/L (3.5-5.1) 3.6mmol/L (3.5-5.1) Chloride Level 106mmol/L (98-107) 105mmol/L (98-107) Carbon Dioxide Level 29mmol/L (21-32) 25mmol/L (21-32) Anion Gap 9 (6-14) 12 (6-14) Blood Urea Nitrogen 11mg/dL (7-20) 10mg/dL (7-20) Creatinine 0.7mg/dL (0.6-1.0) 0.6mg/dL (0.6-1.0) Estimated GFR (Cockcroft-Gault) 104.6 125.0 BUN/Creatinine Ratio 16 (6-20) Glucose Level 80mg/dL (70-99) 71mg/dL (70-99) Calcium Level 8.7mg/dL (8.5-10.1) 8.4mg/dL (8.5-10.1) Total Bilirubin 0.3mg/dL (0.2-1.0) Aspartate Amino Transf (AST/SGOT) 16U/L (15-37) Alanine Aminotransferase (ALT/SGPT) 16U/L (14-59) Alkaline Phosphatase 102U/L (46-116) Total Protein 6.5g/dL (6.4-8.2) Albumin 3.7g/dL (3.4-5.0) Albumin/Globulin Ratio 1.3 (1.0-1.7) Iron Level 32ug/dL (50-170) Total Iron Binding Capacity 280ug/dL (250-450) Iron Saturation 11% (15-34) Ferritin 19ng/mL (8-252) Nasal Screen MRSA (PCR) Negative (Negative) Laboratory Tests Test 12/11/16 23:06 12/12/16 04:10 12/12/16 06:21 White Blood Count 4.4x10^3/uL (4.0-11.0) 4.6x10^3/uL (4.0-11.0) Red Blood Count 4.33x10^6/uL (3.50-5.40) 4.10x10^6/uL (3.50-5.40) Hemoglobin 10.6g/dL (12.0-15.5) 10.1g/dL (12.0-15.5) Hematocrit 34.0% (36.0-47.0) 32.1% (36.0-47.0) Mean Corpuscular Volume 79fL (79-100) 78fL (79-100) Mean Corpuscular Hemoglobin 25pg (25-35) 25pg (25-35) Mean Corpuscular Hemoglobin Concent 31g/dL (31-37) 32g/dL (31-37) Red Cell Distribution Width 20.0% (11.5-14.5) 20.7% (11.5-14.5) Platelet Count 153x10^3/uL (140-400) 155x10^3/uL (140-400) Neutrophils (%) (Auto) 65% (31-73) 50% (31-73) Lymphocytes (%) (Auto) 27% (24-48) 41% (24-48) Monocytes (%) (Auto) 7% (0-9) 8% (0-9) Eosinophils (%) (Auto) 1% (0-3) 1% (0-3) Basophils (%) (Auto) 1% (0-3) 1% (0-3) Neutrophils # (Auto) 2.8x10^3uL (1.8-7.7) 2.3x10^3uL (1.8-7.7) Lymphocytes # (Auto) 1.2x10^3/uL (1.0-4.8) 1.9x10^3/uL (1.0-4.8) Monocytes # (Auto) 0.3x10^3/uL (0.0-1.1) 0.4x10^3/uL (0.0-1.1) Eosinophils # (Auto) 0.0x10^3/uL (0.0-0.7) 0.0x10^3/uL (0.0-0.7) Basophils # (Auto) 0.0x10^3/uL (0.0-0.2) 0.0x10^3/uL (0.0-0.2) Sodium Level 144mmol/L (136-145) 142mmol/L (136-145) Potassium Level 3.8mmol/L (3.5-5.1) 3.6mmol/L (3.5-5.1) Chloride Level 106mmol/L (98-107) 105mmol/L (98-107) Carbon Dioxide Level 29mmol/L (21-32) 25mmol/L (21-32) Anion Gap 9 (6-14) 12 (6-14) Blood Urea Nitrogen 11mg/dL (7-20) 10mg/dL (7-20) Creatinine 0.7mg/dL (0.6-1.0) 0.6mg/dL (0.6-1.0) Estimated GFR (Cockcroft-Gault) 104.6 125.0 BUN/Creatinine Ratio 16 (6-20) Glucose Level 80mg/dL (70-99) 71mg/dL (70-99) Calcium Level 8.7mg/dL (8.5-10.1) 8.4mg/dL (8.5-10.1) Total Bilirubin 0.3mg/dL (0.2-1.0) Aspartate Amino Transf (AST/SGOT) 16U/L (15-37) Alanine Aminotransferase (ALT/SGPT) 16U/L (14-59) Alkaline Phosphatase 102U/L (46-116) Total Protein 6.5g/dL (6.4-8.2) Albumin 3.7g/dL (3.4-5.0) Albumin/Globulin Ratio 1.3 (1.0-1.7) Iron Level 32ug/dL (50-170) Total Iron Binding Capacity 280ug/dL (250-450) Iron Saturation 11% (15-34) Ferritin 19ng/mL (8-252) Nasal Screen MRSA (PCR) Negative (Negative) LADONNA GARCIA MD Dec 12, 2016 16:46
--- NOTE | 2016-12-12 19:46 | EEG ---
DATE OF SERVICE: 12/12/2016 EEG NUMBER: [id number] OBJECTIVE: This is a 20-year-old female patient who was brought [facility] because of seizure or seizure-like episodes. EEG was requested to evaluate seizure activity. METHODS: Sixteen electrodes were applied according to the international 10-20 electrode placement system. EKG monitoring, hyperventilation, intermittent photic stimulation, monopolar and bipolar montages are routinely utilized. The record was obtained on a digital system with video monitoring. MEDICATIONS: Keppra. FINDINGS: 1. Background: The patient was recorded in the awake and drowsy states. No actual sleep state was recorded. The overall background amplitude is 5-15 microvolts. A posterior dominant rhythm of 8-10 Hz is observed. 2. Abnormalities: No specific epileptiform discharge or electrographic seizure is seen. No focal or diffuse slowing. 3. Activation: Hyperventilation was not performed because the patient refused to perform the technique. Intermittent photic stimulation was performed with photic driving. No specific epileptiform discharge or electrographic seizure induced by intermittent photic stimulation. IMPRESSION: This EEG is within the normal limits of the study for the awake and drowsy states. No actual sleep state was recorded. No focal, lateralizing, specific epileptiform discharge or electrographic seizure is seen. LADONNA GARCIA MD DR: PARDEEP/renetta JOB#: [id number] / [id number] TRUDY
[2016-12-13 02:21] VITALS: BP 86/53
[2016-12-13] MEDS: IBUPROFEN 600 MG TABLET. PO PRN (03:51)
[2016-12-13] MEDS ORDERED: ASPI1TAB21 PO (05:13)
[2016-12-13] MEDS ORDERED: METO25TA4 PO (05:13)
[2016-12-13] MEDS ORDERED: DIPH50CA IM/IV/SC (05:13)
[2016-12-13] MEDS ORDERED: PHEN97.2 PO (05:13)
[2016-12-13] MEDS ORDERED: CARB200T PO (05:13)
[2016-12-13] MEDS ORDERED: CITA40TA12 PO (05:13)
[2016-12-13] MEDS ORDERED: HYDR50CA2 PO (05:13)
[2016-12-13] MEDS ORDERED: FERR-26 PO (05:13)
[2016-12-13] MEDS ORDERED: LAMO25TA5 PO ×2 (05:13→12:23)
[2016-12-13 07:00] VITALS: BP 104/63
[2016-12-13] MEDS: LEVETIRACETAM 500 MG TABLET PO SCH (08:29)
--- NOTE | 2016-12-13 10:41 | PDOC ---
PROGRESS NOTES Chief Complaint Chief Complaint (pseudo) seizure ASSESSMENT AND PLAN: 1. Sz: no further events in hospital. EEG neg. has refused keppra, insists on other meds. 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 ideally, would do 24h EEG, pt declines 2. Anxiety/depression: cont celexa. has never had formal psych eval. ? bipolar/personality d/o 3. Dispo: to Sn[facility], A Vitals Vitals Vital Signs Date Time Temp Pulse Resp B/P Pulse Ox O2 Delivery O2 Flow Rate FiO2 12/13/16 07:00 98.7 74 16 104/63 99 Room Air 98.7 Physical Exam General: Alert, Oriented X3 Heart: Regular rate Lungs: Clear Abdomen: Normal bowel sounds Review of Systems Review of Systems refusing to make eye contact, lifting hand as barrier. refuses any meds, wants to leave AMA PRAMOD RIVAS MD Dec 13, 2016 10:41
[2016-12-13 10:55] VITALS: BP 92/58
--- NOTE | 2016-12-13 19:09 | PDOC ---
PROGRESS NOTES Assessment Assessment Seizure or seizure like activities. 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 Hx of seizure or seizure like episodes in 2012 with methamphetamine use. RECOMMENDATIONS/PLAN: She has been on Keppra. She declined LTM VEEG for 24-48 hours. Brain MRI was negative. Routing EEG on 12/12 was a normal study. HISTORY OF THE PRESENT ILLNESS: 20-y-old female inmate with Jx of seizure or seizure like episodes in 2012 associated with methamphetamine use/abuse at that time. She was brought to ER of [facility] recently reported 15 seizures. She returned on this time with multiple seizure or seizure like episodes. Her nurse observed one episode described as eye closure, " unresponsive", and stiffness of extremities for about 2 minutes. No postictal state. She had a "seizure" lasted for 10 to 20 minutes in am of 12/13 described as as pawn shaped fingers with shaking movements. She was also said to have a "seizure " after 7:00 pm on 12/12. Discussed with her about a mcc LTM VEEG to monitor her seizures, but she declined this study. PAST MEDICAL HISTORY: Please see above. PAST SURGERY HISTORY: . ALLERGY: Reviewed. MEDICATIONS: Refer to MAR FAMILY HISTORY: Non contributory. SOCIAL HISTORY: Current as an inmate. Denies illicit drug use. REVIEW OF SYSTEMS: Constitutional: No malnutrition, weight loss, cachexia. Head: No traumatic brain or head injury. Skin: No edema, or rash. Ear: No infection. Eyes: No vision loss or color blindness. Nose: No bleeding or purulent discharges. Hearing: No hearing decrease. Neck: No injury. Breast: No history of cancer, masses,or discharges. Cardiac: No AZ, arrhythmia,claudication, CAD, AFib, Pacemaker Placement. Pulmonary: No pneumonia, COPD. GI: No GI ulcer, GI bleeding. Urinary/genital: No dysuria, hematuria, incontinence, urinary retention. Endocrinologic: No cousin face, craniofacial dysmorphism, polydactyly, goiter. Skeletomuscular: No muscular atrophy, deformity. Neurological: see HP. Psychiatric: Denies current drug use/abuse. Otherwise, not [id number] review of systems. PHYSICAL EXAMINATION: General appearance is in no acute distress. HEENT: Normocephalic and nontraumatic. Eyes, nose, ears, and throat are unremarkable. Neck is supple. No lymphadenopathy. No bruits are heard over the carotid artery. No crepitus. Cardiovascular: S1, S2, regular rate and rhythm. Pulmonary: Clear to auscultation bilaterally. Abdomen: Bowel sounds are positive. Abdomen is soft, nontender, and nondistended. Extremities: No rash, lesions, or edema. No restriction of range of motion NEUROLOGICAL EXAMINATION: Eyes closed but was awake. Oriented to time, place and person. PERRL. EOMI. CN: no focal findings. Muscle tone: within normal. Muscle strength: 5 DTR: 2 Plantar reflex: Flexor response bilaterally Gait: normal. Sensory exam: no abnormal findings. No cerebellar signs elicited. F-T-N test accurate. Objective Objective Vital Signs Date Time Temp Pulse Resp B/P Pulse Ox O2 Delivery O2 Flow Rate FiO2 12/13/16 10:55 98.5 92 16 92/58 16 Room Air 98.5 Intake and Output 12/13/16 07:00 Output Total 1270 ml Balance -1270 ml Output Urine Total 1270 ml Vitals Signs Vitals VS - Last 72 Hours, by Label Date Time Temp Pulse Resp B/P Pulse Ox O2 Delivery O2 Flow Rate FiO2 12/13/16 10:55 98.5 92 16 92/58 16 Room Air 98.5 12/13/16 07:00 98.7 74 16 104/63 99 Room Air 98.7 12/13/16 02:21 98.0 76 18 86/53 97 Room Air 98.0 12/12/16 19:33 98.3 87 20 99/61 95 Room Air 98.3 12/12/16 15:00 97.7 77 18 103/60 100 Room Air 97.7 12/12/16 12:00 98.4 70 20 85/42 98 Room Air 98.4 12/12/16 10:00 72 24 86/47 98 Room Air 12/12/16 09:00 74 20 89/48 99 Room Air 12/12/16 08:00 97.4 70 20 92/43 99 Room Air 97.4 12/12/16 07:00 66 20 104/54 99 Room Air Comment Review of Relevant I have reviewed the following items yeison (where applicable) has been applied. LADONNA GARCIA MD Dec 13, 2016 19:09
--- NOTE | 2016-12-14 00:30 | DS ---
DATE OF DISCHARGE: 12/13/2016 CHIEF COMPLAINT: Pseudoseizures. HOSPITAL COURSE: The patient is a 20-year-old woman who presented from alf with multiple seizures. She actually has had multiple medications at alf, received multiple doses of benzodiazepines in the Emergency Room after arrival here as she appeared to be in status epilepticus. Keppra was started IV here as well. Both carbamazepine and phenobarbital were actually found at therapeutic levels. By report, patient had 19 seizures in a 90-minute period and had received 10 mg of Versed total prior to arrival in the ER. The patient was admitted for further followup. She was seen by Neurology service. An EEG was obtained, which was nonfocal. On further questioning, when patient was coherent, she related that she had a seizure associated with drug abuse in 2011. She relates that she had been started on anti-seizure medications when entering the alf system. She had not seen a neurologist since her initial seizure. The patient declined further Keppra in hospital and insisted that she needed her phenobarbital and carbamazepine that she had received at alf. In discussion with her, it was explained that she most likely had psychogenic seizures rather than true seizures and therefore multiple antiepileptics would not be indicated. She refused Keppra multiple times in the evenings as well as on day of discharge and declined further workup with a 24-hour EEG as well. She insisted on returning to alf. This was facilitated. DISCHARGE DATE: 12/13/2016. DISCHARGE PHYSICAL EXAMINATION: Please refer to note from same day. DISCHARGE DISPOSITION: To alf. DISCHARGE CONDITION: Stable. DISCHARGE DIAGNOSIS: Psychogenic seizures. DISCHARGE MEDICATIONS: Please refer to MAR. DISCHARGE INSTRUCTIONS: The patient will follow up with MD at alf. Greater than 30 minutes spent in arranging discharge. PRAMOD RIVAS MD DR: LIAM/nts JOB#: [id number] / [id number] TRUDY
== END 2016-12-13 16:20 | DRG 100 ==
LOC: ER 22:45 → EEVIPCON 22:45 → CVICU 23:14 → 5 SOUTH 12-12 15:08
PROVIDERS: ADMIT Internal Medicine; ATTEND Internal Medicine
DX: G40.89 Other seizures (principal); G92 Toxic encephalopathy; D50.9 Iron deficiency anemia, unspecified; F32.9 Major depressive disorder, single episode, unspecified; F41.9 Anxiety disorder, unspecified; Z88.0 Allergy status to penicillin; Z88.8 Allergy status to other drugs, medicaments and biological substances
CPT/HCPCS: 36415; 70551; 80048; 80053; 82728; 83540; 83550; 85027; 87641; 93005; 95816; 96365; G0481; J1953; J2405; J7030; 99285-25

== ENCOUNTER 2016-12-24 00:52 | Emergency (ER) | payer OTHER ==
[~2016-12-24 00:52] MED LIST changes: +ASPI1TAB21 PO; +CARB200T PO; +CITA40TA12 PO; +DIPH50CA IM/IV/SC; +FERR-26 PO; +HYDR50CA2 PO; +LAMO25TA5 PO; +METO25TA4 PO; +PHEN97.2 PO
== END 2016-12-24 01:00 | disposition left against medical advice (07) ==
LOC: EEVIPCON 00:55 → ER 00:55
DX: R56.9 Unspecified convulsions (principal); F41.9 Anxiety disorder, unspecified; F32.9 Major depressive disorder, single episode, unspecified; Z53.21 Procedure and treatment not carried out due to patient leaving prior to being seen by health care provider; Z88.8 Allergy status to other drugs, medicaments and biological substances; Z88.0 Allergy status to penicillin